=== PATIENT | male | born 1970 | race Asian ===

== ENCOUNTER 2022-09-03 19:38 | Emergency (ER) | payer OTHER ==
[~2022-09-03] VITALS: Ht 172.7 cm; Wt 115.7 kg
--- NOTE | 2022-09-03 21:02 | NUR ---
BIBS C/O UPPER MID ABDOMINAL PAIN X3DAYS "UNABLE TO EAT" +VOMITTING -DIARRHEA ALSO C/O COUGH X3DAYS.
[2022-09-03] MEDS ORDERED: MAG HYDROX/AL HYDROX/SIMETH 30 ML UDC ONE (21:48)
[2022-09-03] MEDS ORDERED: ACETAMINOPHEN ES 500 MG TABLET ONE (21:48)
[2022-09-03] MEDS ORDERED: FAMOTIDINE (20 MG) 20 MG TABLET ONE (21:48)
[2022-09-03] MEDS ORDERED: ONDANSETRON 4 MG TAB.RAPDIS ONE (21:49)
--- NOTE | 2022-09-03 21:55 | NUR ---
COVID SWAB DONE AND SENT TO LAB
--- NOTE | 2022-09-03 21:55 | NUR ---
FLU SWAB DONE AND SENT TO LAB
--- NOTE | 2022-09-03 21:55 | NUR ---
BS 210
[2022-09-03] MEDS ORDERED: FAMOTIDINE (20 MG) 20 MG TABLET PO ONE (22:00)
[2022-09-03] MEDS ORDERED: MAG HYDROX/AL HYDROX/SIMETH 30 ML UDC PO ONE (22:00)
[2022-09-03] MEDS ORDERED: ACETAMINOPHEN 325 MG TABLET PO ONE (22:00)
[2022-09-03] MEDS ORDERED: ONDANSETRON 4 MG TAB.RAPDIS SL ONE (22:00)
[2022-09-03] MEDS ORDERED: NAPR-1164 PO (22:23)
[2022-09-03] MEDS ORDERED: MAG355OR18 PO (22:23)
[2022-09-03] MEDS ORDERED: ONDA4TAB5 PO (22:23)
--- NOTE | 2022-09-03 22:31 | NUR ---
Patient discharged to home in stable condition. Written and verbal after care instructions given. Patient verbalizes understanding of instruction.
[2022-09-03 22:32] VITALS: BP 149/81
== END 2022-09-03 22:32 | disposition home or self-care (01) ==
LOC: ER 19:44
DX: R10.10 Upper abdominal pain, unspecified (principal); E11.65 Type 2 diabetes mellitus with hyperglycemia; R11.10 Vomiting, unspecified; I10 Essential (primary) hypertension; Z20.822 Contact with and (suspected) exposure to COVID-19
CPT/HCPCS: 99284; 87426; 87804 ×2; 82962; Q0162; C9803

== ENCOUNTER 2023-03-22 11:25 | Inpatient (IN) | payer OTHER ==
[2023-03-22] VITALS (13 sets, daily range): BP systolic 122–140; BP diastolic 49–85; TEMP 98.2–98.6; O2SAT 93–100
[~2023-03-22] VITALS: Ht 172.7 cm; Wt 108.9 kg
[~2023-03-22 11:25] MED LIST: MAG355OR18 PO; NAPR-1164 PO; ONDA4TAB5 PO
[2023-03-22] MEDS ORDERED: ALBUTEROL FS 2.5 MG/3 ML VIAL.NEB ONE (11:38)
[2023-03-22] MEDS ORDERED: ALBUTEROL FS 2.5 MG/3 ML VIAL.NEB NEB ONE (12:00)
[2023-03-22 12:09] LABS: BASOPHILS # (AUTO) 0.1 K/uL (0.0-0.2); BASOPHILS % (AUTO) 0.6 % (0.0-2.0); EOSINOPHILS # (AUTO) 0.5 K/uL (0.0-0.7); HEMATOCRIT 45 % (39-51); HEMOGLOBIN 14.8 g/dL (13.5-17.5); LYMPHOCYTES # (AUTO) 1.2 K/uL (0.8-4.8); LYMPHOCYTES % (AUTO) 12.4 % (20.0-44.0); MEAN CORPUSCULAR HEMOGLOBIN 29 PG (26.0-33.0); MEAN CORPUSCULAR HGB CONC 33 g/dl (31.0-36.0); MEAN CORPUSCULAR VOLUME 87 fL (80-96); MONOCYTES # (AUTO) 0.3 K/uL (0.1-1.30); NEUTROPHILS # (AUTO) 7.7 K/uL (1.8-8.9); PLATELET COUNT (AUTO) 214 K/uL (150-450); RED BLOOD CELL COUNT(AUTO) 5.16 MIL/uL (4.5-6.0); RED CELL DISTRIBUTION WIDTH 14.4 % (11.5-15.0); WHITE BLOOD COUNT (AUTO) 9.8 K/uL (4.3-11.0)
[2023-03-22 12:22] LABS: CALCIUM, SERUM 8.8 mg/dL (8.5-10.1); CARBON DIOXIDE 24 mmol/L (21-32); CHLORIDE 98 mmol/L (98-107); CREATININE 1.1 mg/dL (0.6-1.3); GLUCOSE 393 mg/dL (74-106); POTASSIUM 4.3 mmol/L (3.5-5.1); SODIUM SERUM 131 mmol/L (136-145); UREA NITROGEN, BLOOD 14 mg/dL (7-18)
[2023-03-22 12:35] LABS: NT-PRO BNP 135 pg/mL (0-125)
[2023-03-22] MEDS ORDERED: AMIODARONE 450 MG in IV D5W 250 ML IV ONE (13:00)
[2023-03-22] MEDS ORDERED: AMIODARONE 150 MG in IV D5W 100 ML IV ONE (13:00)
[2023-03-22] MEDS ORDERED: ALBU2.5V38 IH (13:43)
[2023-03-22] MEDS ORDERED: METF-442 PO (13:43)
[2023-03-22] MEDS ORDERED: IBUP-1955 PO (13:43)
[2023-03-22] MEDS ORDERED: SEMA3TAB PO (13:43)
[2023-03-22] MEDS ORDERED: HYDR12.55 PO (13:43)
[2023-03-22] MEDS ORDERED: METO25TA20 PO (13:43)
[2023-03-22] MEDS ORDERED: DAPA10TA PO (13:43)
[2023-03-22] MEDS ORDERED: BENZ-13 PO (13:43)
[2023-03-22] MEDS ORDERED: ATOR40TA PO (13:43)
[2023-03-22] MEDS ORDERED: LOSA50TA39 PO (13:43)
[2023-03-22] MEDS ORDERED: IPRATROPIUM NEB FS 0.5 MG/2.5 ML AMPUL.NEB NEB PRN ×2 (14:00→16:00)
[2023-03-22] MEDS ORDERED: LEVALBUTEROL HCL NEB 1.25 MG/0.5 ML VIAL.NEB NEB PRN (14:00)
[2023-03-22] MEDS ORDERED: GUAIFENESIN LA 600 MG TABLET.SA PO ONE (14:00)
[2023-03-22] MEDS ORDERED: DEXTROSE 50%-WATER 50 ML DISP.SYRIN IV PRN (16:00)
[2023-03-22] MEDS ORDERED: ENOXAPARIN SODIUM 100 MG/ML DISP.SYRIN SQ SCH (17:00)
[2023-03-22] MEDS ORDERED: DIGOXIN INJ 0.5 MG/2 ML AMPUL IV ONE (17:00)
[2023-03-22] MEDS: ALBUTEROL FS 2.5 MG/0.5 ML VIAL.NEB NEB SCH ×3 (17:00→23:11)
[2023-03-22] MEDS: IPRATROPIUM NEB FS 0.5 MG/2.5 ML AMPUL.NEB NEB SCH ×2 (17:00→23:11)
[2023-03-22] MEDS ORDERED: DILTIAZEM HCL 30 MG TABLET PO SCH (17:00)
[2023-03-22] MEDS: METFORMIN 500 MG TABLET PO SCH (17:46)
[2023-03-22] MEDS: CEFTRIAXONE 1 G in IV D5W 50 ML IV SCH (17:46)
[2023-03-22] MEDS: AMIODARONE 450 MG in IV D5W 241 ML IV PRN ×2 (17:47→19:56)
[2023-03-22] MEDS: BLOOD SUGAR DIAGNOSTIC 1 EACH STRIP VI SCH ×2 (17:47→21:30)
[2023-03-22] MEDS: INSULIN REGULAR, HUMAN 100 UNIT/ML 3 ML VIAL SQ PRN (17:55)
[2023-03-22] MEDS ORDERED: AZITHROMYCIN 500 MG in IV D5W 250 ML IV SCH (18:00)
[2023-03-22] MEDS ORDERED: IV NS 0.9% 250 ML IV PRN (18:00)
[2023-03-22] MEDS: dexaMETHasone SOD PHOSPHATE 6 MG in IV D5W 50 ML IV SCH ×2 (18:50→23:28)
[2023-03-22] MEDS: ZITHROMAX 500 MG/250 ML D5W IV SCH ×2 (19:56)
[2023-03-22] MEDS: ATORVASTATIN 40 MG TABLET PO SCH (21:24)
[2023-03-22] MEDS ORDERED: INSULIN REGULAR, HUMAN 100 UNIT/ML 10 ML VIAL SQ ONE (22:00)
[2023-03-22] MEDS: *INSULIN REGULAR(HUMULIN R)HUM 100 UNIT/ML VIAL SQ PRN (22:09)
[2023-03-23] VITALS (21 sets, daily range): BP systolic 107–168; BP diastolic 55–83; TEMP 97.6–98.8; O2SAT 91–97
[2023-03-23] MEDS: BENZONATATE 100 MG CAPSULE PO PRN ×2 (00:52→23:39)
[2023-03-23] MEDS: ALBUTEROL FS 2.5 MG/0.5 ML VIAL.NEB NEB SCH ×6 (03:30→23:36)
[2023-03-23 04:54] LABS: BASOPHILS % (AUTO) 0.2 % (0.0-2.0); HEMATOCRIT 46 % (39-51); HEMOGLOBIN 14.8 g/dL (13.5-17.5); LYMPHOCYTES # (AUTO) 1.2 K/uL (0.8-4.8); LYMPHOCYTES % (AUTO) 10.8 % (20.0-44.0); MEAN CORPUSCULAR HEMOGLOBIN 28 PG (26.0-33.0); MEAN CORPUSCULAR HGB CONC 32 g/dl (31.0-36.0); MEAN CORPUSCULAR VOLUME 87 fL (80-96); MONOCYTES # (AUTO) 0.2 K/uL (0.1-1.30); MONOCYTES % (AUTO) 1.4 % (2.0-12.0); NEUTROPHILS % (AUTO) 87.6 % (43.0-81.0); PLATELET COUNT (AUTO) 229 K/uL (150-450); RED CELL DISTRIBUTION WIDTH 14.1 % (11.5-15.0); WHITE BLOOD COUNT (AUTO) 11.5 K/uL (4.3-11.0)
[2023-03-23 05:08] LABS: ALBUMIN 3.6 g/dL (3.4-5.0); CALCIUM, SERUM 9.3 mg/dL (8.5-10.1); CREATININE 0.9 mg/dL (0.6-1.3); POTASSIUM 4.1 mmol/L (3.5-5.1); TOTAL PROTEIN, SERUM 7.1 g/dL (6.4-8.2)
[2023-03-23] MEDS: dexaMETHasone SOD PHOSPHATE 6 MG in IV D5W 50 ML IV SCH (05:09)
[2023-03-23 05:16] LABS: THYROID STIMULATING HORMONE 0.229 uIU/mL (0.358-3.74)
[2023-03-23] MEDS: IPRATROPIUM NEB FS 0.5 MG/2.5 ML AMPUL.NEB NEB SCH ×3 (07:35→23:36)
[2023-03-23] MEDS: BLOOD SUGAR DIAGNOSTIC 1 EACH STRIP VI SCH ×4 (07:51→21:54)
[2023-03-23] MEDS: METFORMIN 500 MG TABLET PO SCH ×2 (08:17→17:32)
[2023-03-23] MEDS: INSULIN REGULAR, HUMAN 100 UNIT/ML 3 ML VIAL SQ PRN ×3 (08:18→17:31)
[2023-03-23] MEDS: ENOXAPARIN SODIUM 40 MG/0.4 ML DISP.SYRIN SQ SCH (08:18)
[2023-03-23] MEDS ORDERED: INSULIN GLARGINE, 100 UNIT/ML CARTRIDGE SQ ONE (08:30)
[2023-03-23] MEDS: dexaMETHasone SOD PHOSPHATE 10 MG/ML VIAL IV SCH ×3 (12:18→23:56)
[2023-03-23] MEDS: CEFTRIAXONE 1 G in IV D5W 50 ML IV SCH (17:31)
[2023-03-23] MEDS: ZITHROMAX 500 MG/250 ML D5W IV SCH ×2 (17:31)
[2023-03-23] MEDS: ATORVASTATIN 40 MG TABLET PO SCH (21:12)
[2023-03-23] MEDS: *INSULIN REGULAR(HUMULIN R)HUM 100 UNIT/ML VIAL SQ PRN (21:56)
[2023-03-23] MEDS: DILTIAZEM HCL 30 MG TABLET PO SCH (23:20)
[2023-03-24] VITALS (19 sets, daily range): BP systolic 108–120; BP diastolic 57–75; TEMP 97.7–98.3; O2SAT 94–100
[2023-03-24] MEDS: ALBUTEROL FS 2.5 MG/0.5 ML VIAL.NEB NEB SCH ×6 (03:40→23:27)
[2023-03-24] MEDS: dexaMETHasone SOD PHOSPHATE 10 MG/ML VIAL IV SCH ×4 (05:51→23:59)
[2023-03-24] MEDS: DILTIAZEM HCL 30 MG TABLET PO SCH ×3 (05:54→17:51)
[2023-03-24] MEDS: BLOOD SUGAR DIAGNOSTIC 1 EACH STRIP VI SCH ×4 (05:54→21:46)
[2023-03-24] MEDS: INSULIN REGULAR, HUMAN 100 UNIT/ML 3 ML VIAL SQ PRN (06:12)
[2023-03-24] MEDS: IPRATROPIUM NEB FS 0.5 MG/2.5 ML AMPUL.NEB NEB SCH ×3 (07:31→23:27)
[2023-03-24] MEDS: ENOXAPARIN SODIUM 40 MG/0.4 ML DISP.SYRIN SQ SCH (08:20)
[2023-03-24] MEDS: METFORMIN 500 MG TABLET PO SCH ×2 (08:20→17:51)
[2023-03-24] MEDS ORDERED: INSULIN GLARGINE, 100 UNIT/ML CARTRIDGE SQ ONE (08:30)
[2023-03-24] MEDS ORDERED: AMIODARONE 450 MG in IV D5W 250 ML IV PRN (08:30)
[2023-03-24] MEDS ORDERED: AMIODARONE 150 MG in IV D5W 100 ML IV ONE (08:30)
[2023-03-24] MEDS: APIXABAN 5 MG TABLET PO SCH ×2 (09:01→17:54)
[2023-03-24 09:58] LABS: THYROID STIMULATING HORMONE 0.14 uIU/mL (0.358-3.74)
[2023-03-24] MEDS: AMIODARONE 450 MG in IV D5W 241 ML IV PRN ×2 (10:18→14:59)
[2023-03-24] MEDS: *INSULIN REGULAR(HUMULIN R)HUM 100 UNIT/ML VIAL SQ PRN ×3 (13:08→21:48)
[2023-03-24] MEDS: CEFTRIAXONE 1 G in IV D5W 50 ML IV SCH (18:14)
[2023-03-24] MEDS: ZITHROMAX 500 MG/250 ML D5W IV SCH ×2 (19:02)
[2023-03-24] MEDS: ATORVASTATIN 40 MG TABLET PO SCH (21:35)
[2023-03-25] VITALS (18 sets, daily range): BP systolic 109–118; BP diastolic 60–70; TEMP 97.7–98.3; O2SAT 93–99
[2023-03-25] MEDS: DILTIAZEM HCL 30 MG TABLET PO SCH ×4 (00:17→23:07)
[2023-03-25] MEDS: AMIODARONE 450 MG in IV D5W 241 ML IV PRN (02:48)
[2023-03-25] MEDS: BENZONATATE 100 MG CAPSULE PO PRN (03:07)
[2023-03-25] MEDS: ALBUTEROL FS 2.5 MG/0.5 ML VIAL.NEB NEB SCH ×6 (03:43→23:30)
[2023-03-25] MEDS: dexaMETHasone SOD PHOSPHATE 10 MG/ML VIAL IV SCH ×4 (05:41→23:07)
[2023-03-25] MEDS: BLOOD SUGAR DIAGNOSTIC 1 EACH STRIP VI SCH ×4 (07:33→21:46)
[2023-03-25] MEDS: IPRATROPIUM NEB FS 0.5 MG/2.5 ML AMPUL.NEB NEB SCH ×3 (07:47→23:30)
[2023-03-25 07:54] LABS: BASOPHILS % (AUTO) 0.2 % (0.0-2.0); EOSINOPHILS % (AUTO) 0.1 % (0.0-6.0); HEMATOCRIT 45 % (39-51); HEMOGLOBIN 14.3 g/dL (13.5-17.5); LYMPHOCYTES # (AUTO) 1.2 K/uL (0.8-4.8); LYMPHOCYTES % (AUTO) 7.6 % (20.0-44.0); MEAN CORPUSCULAR HEMOGLOBIN 28 PG (26.0-33.0); MEAN CORPUSCULAR HGB CONC 32 g/dl (31.0-36.0); MEAN CORPUSCULAR VOLUME 87 fL (80-96); MONOCYTES # (AUTO) 0.3 K/uL (0.1-1.30); MONOCYTES % (AUTO) 2.1 % (2.0-12.0); PLATELET COUNT (AUTO) 209 K/uL (150-450); RED BLOOD CELL COUNT(AUTO) 5.13 MIL/uL (4.5-6.0); RED CELL DISTRIBUTION WIDTH 14.5 % (11.5-15.0); WHITE BLOOD COUNT (AUTO) 15.5 K/uL (4.3-11.0)
[2023-03-25] MEDS: ENOXAPARIN SODIUM 40 MG/0.4 ML DISP.SYRIN SQ SCH (08:00)
[2023-03-25] MEDS: INSULIN REGULAR, HUMAN 100 UNIT/ML 3 ML VIAL SQ PRN ×3 (08:03→16:52)
[2023-03-25] MEDS: METFORMIN 500 MG TABLET PO SCH ×2 (08:14→16:31)
[2023-03-25] MEDS: APIXABAN 5 MG TABLET PO SCH ×2 (08:18→16:31)
[2023-03-25] MEDS ORDERED: PRED5TAB48 PO (09:30)
[2023-03-25] MEDS ORDERED: FLUT1DIS INH (09:30)
[2023-03-25] MEDS ORDERED: DILTIAZEM HCL CD 120 MG PO SCH (09:30)
[2023-03-25] MEDS ORDERED: AMOX-430 PO (09:30)
[2023-03-25] MEDS ORDERED: APIX5TAB PO (09:30)
[2023-03-25] MEDS: GLIMEPIRIDE 1 MG TABLET PO SCH (09:57)
[2023-03-25] MEDS: CEFTRIAXONE 1 G in IV D5W 50 ML IV SCH (16:31)
[2023-03-25] MEDS: ZITHROMAX 500 MG/250 ML D5W IV SCH ×2 (17:22)
[2023-03-25] MEDS ORDERED: ZOLPIDEM TARTRATE 5 MG TABLET PO PRN (21:00)
[2023-03-25] MEDS: ATORVASTATIN 40 MG TABLET PO SCH (21:42)
[2023-03-25] MEDS: *INSULIN REGULAR(HUMULIN R)HUM 100 UNIT/ML VIAL SQ PRN (21:47)
[2023-03-26] VITALS: BP 138/72; TEMP 97.8; O2SAT 95
[2023-03-26] MEDS: ALBUTEROL FS 2.5 MG/0.5 ML VIAL.NEB NEB SCH ×3 (03:30→11:30)
[2023-03-26 04:00] VITALS: BP 121/68; TEMP 98; O2SAT 97
[2023-03-26] MEDS: DILTIAZEM HCL 30 MG TABLET PO SCH (05:20)
[2023-03-26] MEDS: dexaMETHasone SOD PHOSPHATE 10 MG/ML VIAL IV SCH (05:20)
[2023-03-26 07:59] VITALS: O2SAT 94
[2023-03-26] MEDS: IPRATROPIUM NEB FS 0.5 MG/2.5 ML AMPUL.NEB NEB SCH (07:59)
[2023-03-26 08:00] VITALS: BP 123/73; TEMP 98; O2SAT 98
[2023-03-26 08:17] VITALS: O2SAT 93
[2023-03-26] MEDS: METFORMIN 500 MG TABLET PO SCH (08:49)
[2023-03-26] MEDS: GLIMEPIRIDE 1 MG TABLET PO SCH (08:49)
[2023-03-26] MEDS: INSULIN REGULAR, HUMAN 100 UNIT/ML 3 ML VIAL SQ PRN (08:52)
[2023-03-26] MEDS: BLOOD SUGAR DIAGNOSTIC 1 EACH STRIP VI SCH (08:55)
[2023-03-26] MEDS: APIXABAN 5 MG TABLET PO SCH (09:02)
[2023-03-26] MEDS ORDERED: DILT240T12 PO (09:33)
[2023-03-26] MEDS ORDERED: AMIO200T5 PO (09:35)
== END 2023-03-26 14:12 | disposition home or self-care (01) | DRG 202 ==
LOC: ER 11:28 → ICU 16:48 → TELE 03-23 12:38 → TELE1 03-24 09:15 → TELE-TD 03-24 09:16 → TELE1 03-25 15:35
PROVIDERS: ADMIT Internal Medicine; ATTEND Internal Medicine
DX: J45.901 Unspecified asthma with (acute) exacerbation (principal); I48.92 Unspecified atrial flutter; J44.1 Chronic obstructive pulmonary disease with (acute) exacerbation; I48.0 Paroxysmal atrial fibrillation; Z20.822 Contact with and (suspected) exposure to COVID-19; I10 Essential (primary) hypertension; E11.9 Type 2 diabetes mellitus without complications; Z79.51 Long term (current) use of inhaled steroids; Z79.84 Long term (current) use of oral hypoglycemic drugs; Z79.899 Other long term (current) drug therapy; Z87.891 Personal history of nicotine dependence; G47.33 Obstructive sleep apnea (adult) (pediatric); E66.9 Obesity, unspecified; Z68.36 Body mass index [BMI] 36.0-36.9, adult
CPT/HCPCS: 36415; 70220-TC; 71045-TC; 80048-TC; 80053-TC; 82962-TC; 83880; 84439-TC; 84443-TC; 84484-TC; 85025-TC; 93307-TC; 94799-TC; A4223; C9803; G0378; J0282; J0456; J0696; J1100; J1160; J1650; J1815; J7050; J7060